=== PATIENT | female | born 1940 | race Caucasian/White ===

== ENCOUNTER 2016-07-17 18:25 | Emergency (ER) | payer OTHER ==
[~2016-07-17] VITALS: Ht 162.6 cm; Wt 70.8 kg
[~2016-07-17 18:25] MED LIST: ADVIL200 MG PO; ASCORBIC ACID500 M1 PO; ASPIRIN81 M2 PO; CIPRO500 M1 PO; LO-DOSE ASPIRIN81 M1 PO; PRAVASTATIN SOD40 MG PO; VITAMIN D31000 UNI1 PO
[2016-07-17 20:48] LABS: HEMATOCRIT 43.3 % (36.0-46.0); MCH 31.2 PG (29.0-34.0); MCHC 32.8 G/DL (30.0-36.0); MCV 95.2 FL (83-99); PLATELET COUNT 340 K/uL (156-360); RBC DIS.WIDTH-CV 13.4 % (11.8-14.6); RBC DIS.WIDTH-SD 47.4 % (39-53); RED BLOOD COUNT 4.55 M/uL (3.80-5.20); WHITE BLOOD COUNT 9.3 K/uL (4.1-10.2)
[2016-07-17] MEDS ORDERED: BIOTIN5000 MCG PO (20:48)
[2016-07-17 20:59] LABS: CHLORIDE 105 mEq/L (99-109); POTASSIUM 4.3 mEq/L (3.7-5.4); SODIUM 143 mEq/L (136-147)
[2016-07-17 21:01] LABS: GLUCOSE 114 mg/dL (70-99)
[2016-07-17 21:02] LABS: ANION GAP 10 MEQ/L (2-14)
[2016-07-17 21:03] LABS: TOTAL BILIRUBIN 0.5 mg/dL (0.0-1.0)
[2016-07-17 21:04] LABS: ALKALINE PHOSPHATASE 93 IU/L (3-129)
[2016-07-17 21:05] LABS: GFR ESTIMATE (CALCULATED) 52 mL/min/
[2016-07-17 21:06] LABS: UREA NITROGEN (BUN) 21 mg/dL (9-23)
[2016-07-17 21:08] LABS: LIPASE 47 U/L (1.0-51.0)
[2016-07-17 21:11] LABS: TROP-I INTERPRETATION NEGATIVE; TROPONIN-I < 0.01 ng/mL (0.0-0.30)
[2016-07-17] MEDS ORDERED: OMEPRAZOLE40 M1 PO (21:48)
[2016-07-17 22:26] VITALS: BP 146/76
== END 2016-07-17 22:27 | disposition home or self-care (01) ==
LOC: EME 18:25
PROVIDERS: Physician Assistant
DX: K21.9 Gastro-esophageal reflux disease without esophagitis (principal); M54.6 Pain in thoracic spine
CPT/HCPCS: 74022; 80053; 83690; 84484; 85027; 93005; 99281; 99283

== ENCOUNTER 2017-03-12 22:38 | Observation (INO) | payer OTHER ==
[~2017-03-12] VITALS: Ht 162.6 cm; Wt 69.9 kg
[~2017-03-12 22:38] MED LIST changes: +BIOTIN5000 MCG PO; +OMEPRAZOLE40 M1 PO
[2017-03-12 23:15] LABS: HEMATOCRIT 38.5 % (36.0-46.0); MCH 31.8 PG (29.0-34.0); MCHC 33.5 G/DL (30.0-36.0); MCV 94.8 FL (83-99); MEAN PLAT.VOLUME 9.8 uM^3 (9.5-12.4); PLATELET COUNT 291 K/uL (156-360); RBC DIS.WIDTH-CV 12.7 % (11.8-14.6); RBC DIS.WIDTH-SD 44.2 % (39-53); RED BLOOD COUNT 4.06 M/uL (3.80-5.20); WHITE BLOOD COUNT 8.1 K/uL (4.1-10.2)
[2017-03-12 23:22] LABS: PROTHROMBIN TIME 11.4 SEC (10.2-12.9)
[2017-03-12 23:24] LABS: PTT 28.8 SEC (25-37)
[2017-03-12 23:30] LABS: CHLORIDE 108 mEq/L (99-109); POTASSIUM 4.2 mEq/L (3.7-5.4); SODIUM 141 mEq/L (136-147)
[2017-03-12 23:31] LABS: GLUCOSE 93 mg/dL (70-99)
[2017-03-12 23:33] LABS: ANION GAP 8 MEQ/L (2-14)
[2017-03-12 23:35] LABS: GFR ESTIMATE (CALCULATED) > 59 mL/min/
[2017-03-12 23:36] LABS: UREA NITROGEN (BUN) 20 mg/dL (9-23)
[2017-03-13 02:49] LABS: HDL CHOLESTEROL 51 MG/DL (Desirable>=50); LDL CHOLESTEROL 63 mg/dL (Desirable<100); NON-HDL CHOLESTEROL 94 mg/dL (Desirable<160); SAMPLE HEMOLYSIS CHECK 0; SAMPLE ICTERIC CHECK 0; SAMPLE LIPEMIA CHECK 0; TOTAL CHOLESTEROL 145 mg/dL (Desirable<200); TRIGLYCERIDES 155 MG/DL (Normal: <150)
[2017-03-13 04:06] VITALS: BP 145/64
[2017-03-13 06:46] LABS: Estimated Average Glucose 120 mg/dL (70-123); HEMOGLOBIN A1c (GLYCOHEMOGLOB) 5.8 % HGB (Below 5.7)
[2017-03-13 07:41] VITALS: BP 128/60
[2017-03-13] MEDS ORDERED: PEPCID20 MG PO (10:44)
[2017-03-13 11:18] VITALS: BP 136/68
[2017-03-13] MEDS ORDERED: PRAVASTATIN SOD40 MG PO (16:13)
== END 2017-03-13 16:55 | disposition home or self-care (01) ==
LOC: EME 22:38 → EDOF 03-13 02:04 → ENRESERV 03-13 02:06 → 5WEST 03-13 03:19
PROVIDERS: Emergency Medicine; Physician Assistant Medical
DX: G45.9 Transient cerebral ischemic attack, unspecified (principal); E78.5 Hyperlipidemia, unspecified; I45.10 Unspecified right bundle-branch block; Z79.82 Long term (current) use of aspirin; E55.9 Vitamin D deficiency, unspecified; I10 Essential (primary) hypertension; M54.5 Low back pain; E04.2 Nontoxic multinodular goiter; F41.0 Panic disorder [episodic paroxysmal anxiety]; K21.9 Gastro-esophageal reflux disease without esophagitis; Z82.49 Family history of ischemic heart disease and other diseases of the circulatory system; Z80.52 Family history of malignant neoplasm of bladder; Z82.61 Family history of arthritis
CPT/HCPCS: 70496; 70498; 70551; 71020; 80048; 80061; 83036; 85027; 85610; 85730; 93005; 93306; 99281; 99285; G0378; J2060

== ENCOUNTER 2017-03-15 22:12 | Observation (INO) | payer OTHER ==
[~2017-03-15] VITALS: Ht 162.6 cm; Wt 70.2 kg
[~2017-03-15 22:12] MED LIST changes: +PEPCID20 MG PO
[2017-03-15 22:38] LABS: HEMATOCRIT 40.3 % (36.0-46.0); MCH 31.6 PG (29.0-34.0); MCHC 33.5 G/DL (30.0-36.0); MCV 94.4 FL (83-99); MEAN PLAT.VOLUME 10.2 uM^3 (9.5-12.4); PLATELET COUNT 305 K/uL (156-360); RBC DIS.WIDTH-CV 12.6 % (11.8-14.6); RBC DIS.WIDTH-SD 43.9 % (39-53); RED BLOOD COUNT 4.27 M/uL (3.80-5.20); WHITE BLOOD COUNT 8.1 K/uL (4.1-10.2)
[2017-03-15 22:44] LABS: PROTHROMBIN TIME 11.2 SEC (10.2-12.9)
[2017-03-15 22:47] LABS: CHLORIDE 108 mEq/L (99-109); POTASSIUM 4.1 mEq/L (3.7-5.4); PTT 28.5 SEC (25-37); SODIUM 138 mEq/L (136-147)
[2017-03-15 22:49] LABS: GLUCOSE 98 mg/dL (70-99)
[2017-03-15 22:50] LABS: ANION GAP 8 MEQ/L (2-14)
[2017-03-15 22:52] LABS: GFR ESTIMATE (CALCULATED) > 59 mL/min/
[2017-03-15 22:53] LABS: UREA NITROGEN (BUN) 16 mg/dL (9-23)
[2017-03-15 22:59] LABS: TROP-I INTERPRETATION NEGATIVE; TROPONIN-I < 0.01 ng/mL (0.0-0.30)
[2017-03-16 04:22] VITALS: BP 166/67
[2017-03-16 05:23] LABS: TROP-I INTERPRETATION NEGATIVE; TROPONIN-I < 0.01 ng/mL (0.0-0.30)
[2017-03-16 06:03] LABS: HDL CHOLESTEROL 53 MG/DL (Desirable>=50); LDL CHOLESTEROL 66 mg/dL (Desirable<100); NON-HDL CHOLESTEROL 85 mg/dL (Desirable<160); TOTAL CHOLESTEROL 138 mg/dL (Desirable<200); TRIGLYCERIDES 97 MG/DL (Normal: <150)
[2017-03-16 07:42] VITALS: BP 134/71
[2017-03-16 11:56] VITALS: BP 134/80
[2017-03-16 11:57] LABS: TROP-I INTERPRETATION NEGATIVE; TROPONIN-I < 0.01 ng/mL (0.0-0.30)
[2017-03-16] MEDS ORDERED: TYLENOL EXTRA500 MG PO (12:01)
[2017-03-16] MEDS ORDERED: SYSTANE CONTACT12 ML OP (12:02)
[2017-03-16] MEDS ORDERED: ALEVE220 M2 PO (12:02)
[2017-03-16] MEDS ORDERED: EYE DROP15 ML BOTH EYES (12:03)
== END 2017-03-16 14:49 | disposition home or self-care (01) ==
LOC: EME → EDBD 22:12 → EME 22:12 → EDOF 03-16 02:50 → ENRESERV 03-16 02:51 → 5WEST 03-16 04:10
PROVIDERS: Emergency Medicine; Hospitalist; Physician Assistant
DX: R20.2 Paresthesia of skin (principal); R20.0 Anesthesia of skin; R53.1 Weakness; Z86.73 Personal history of transient ischemic attack (TIA), and cerebral infarction without residual deficits; I45.10 Unspecified right bundle-branch block; K21.9 Gastro-esophageal reflux disease without esophagitis; M60.9 Myositis, unspecified; T46.6X5A Adverse effect of antihyperlipidemic and antiarteriosclerotic drugs, initial encounter; E78.5 Hyperlipidemia, unspecified; K44.9 Diaphragmatic hernia without obstruction or gangrene; E55.9 Vitamin D deficiency, unspecified; Z79.82 Long term (current) use of aspirin
CPT/HCPCS: 70450; 71020; 71275; 80048; 80061; 84484; 85027; 85610; 85730; 93005; 99281; 99285; G0378